=== PATIENT | male | born 1970 | race Caucasian/White ===

== ENCOUNTER 2023-08-25 12:34 | Emergency (ER) | payer OTHER ==
[~2023-08-25] VITALS: Ht 175.3 cm; Wt 133.8 kg
[2023-08-25 12:58] VITALS: TEMP 98.3
[2023-08-25] MEDS ORDERED: KETOROLAC 15MG/ML VIAL IM ONE (14:00)
[2023-08-25] MEDS: MORPHINE SULFATE 4 MG/ML INJ (FOR IV/IM USE) IV ONE (14:34)
[2023-08-25] MEDS: PROPOFOL 200MG/20ML VIAL IV ONE (14:43)
[2023-08-25 15:25] VITALS: O2SAT 100
[2023-08-25] MEDS ORDERED: NAPR-1176 MT (15:40)
[2023-08-25] MEDS ORDERED: LIDO700A15 TP (15:40)
[2023-08-25 16:13] VITALS: BP 134/87; PULSE 72; RESP 16
== END 2023-08-25 16:14 | disposition home or self-care (01) ==
LOC: ER 12:34
DX: S43.034A Inferior dislocation of right humerus, initial encounter (principal); X58.XXXA Exposure to other specified factors, initial encounter; Y93.89 Activity, other specified; Y92.89 Other specified places as the place of occurrence of the external cause; Y99.8 Other external cause status
CPT/HCPCS: 73020; 73030; 23650; 96374; 99152; 99285; J2704; J2270; Z7610 ×3